=== PATIENT | female | born 1995 | race Caucasian/White ===

== ENCOUNTER → 2019-08-10 | Outpatient (REF) | payer OTHER ==
[2019-08-10 18:21] LABS: HEMATOCRIT 41.8 % (36.0-47.0); HEMOGLOBIN 13.9 g/dl (12.0-15.5); MEAN CORPUSCULAR HEMOGLOBIN 29.1 pg (27.0-33.0); MEAN CORPUSCULAR HGB CONC 33.3 g/dl (32.0-36.5); MEAN CORPUSCULAR VOLUME 87.4 fl (80.0-96.0); PLATELET COUNT, AUTOMATED 285 10^3/uL (150-450); RED BLOOD COUNT 4.78 10^6/uL (4.00-5.40); WHITE BLOOD COUNT 9.5 10^3/uL (4.0-10.0)
[2019-08-10 19:02] LABS: HCG, SERUM QUANTITATIVE 58061 MIU/ML
[2019-08-11 09:42] LABS: RUBELLA IgG QUALITATIVE EQUIVOCAL (IMMUNE)
[2019-08-11 10:10] LABS: HEPATITIS C VIRUS ABY INDEX < 0.0 INDEX (<0.8)
[2019-08-11 10:11] LABS: HIV 1&2 SCREEN CENTAUR NEGATIVE (NEGATIVE)
== END ==
LOC: M LAB REF 16:39
PROVIDERS: ATTEND Obstetrics & Gynecology
DX: O36.80X0 Pregnancy with inconclusive fetal viability, not applicable or unspecified (principal)

== ENCOUNTER → 2019-08-15 | Outpatient (CLI) | payer OTHER ==
--- NOTE | 2019-08-15 14:30 | REP ---
Clinical: Dating and viability. Technique: Transabdominal obstetrical ultrasound with color Doppler evaluation. Findings: Ultrasound examination demonstrates a single live intrauterine . Biometrical measurements correspond to 14 weeks 0 days gestational age with estimated date of delivery 02/13/2020. heart rate equals 152 beats per minute. Placenta identified anteriorly and grade 1 without evidence for placenta previa or abruption. Cervix appears closed and measures 3.3 cm length. Amniotic fluid volume is subjectively normal. Impression: A single live early intrauterine at 14 weeks 0 days gestational age. Electronically Signed by Wilian Acosta MD 08/15/2019 02:22 P
== END ==
LOC: M RAD 13:41
PROVIDERS: ATTEND Obstetrics & Gynecology
DX: O36.80X0 Pregnancy with inconclusive fetal viability, not applicable or unspecified (principal)

== ENCOUNTER → 2019-10-03 | Outpatient (CLI) | payer OTHER, MEDICAID ==
--- NOTE | 2019-10-03 17:54 | REP ---
HISTORY: anatomy. COMPARISON: None. Multiple ultrasonographic images of the gravid uterus show a single living intrauterine gestation in the cephalic presentation. Doppler interrogation of the heart shows a heart rate of 144 beats per minute. The placenta is anterior and not low lying. The subjective amniotic fluid volume is within normal limits. The cervix measures 3.5 cm in length and is closed. Evaluation of the maternal adnexal spaces showed no abnormalities. BPD 4.7 cm = 20 weeks 2 days HC 17.7 cm = 20 weeks 1 day AC 13.6 cm = 19 weeks 1 day FL 3.2 cm = 20 weeks 0 days The estimated weight is 301 grams, which is at the 20th percentile for a 20 week 3 day gestational age. The structures visualized as unremarkable are as follows: Thalami, cavum septum pellucidum, cerebellum, cisterna magna, upper lip, right and left ventricular outflow tracts, stomach, three vessel umbilical cord, cord insertion, spine, kidneys, urinary bladder, upper and lower extremities. Four chamber heart was not adequately visualized. IMPRESSION: Single living intrauterine gestation as described above with an estimated gestational age of 19 weeks 6 days via composite criteria and an estimated date of delivery of 02/21/2020 by today's exam. No anomalies were detected, however, I recommend a followup examination to better visualize the four chamber heart. Electronically Signed by Rafat Kraus DO 10/03/2019 07:30 P
== END ==
LOC: M RAD 15:21
PROVIDERS: ATTEND Obstetrics & Gynecology
DX: Z34.02 Encounter for supervision of normal first pregnancy, second trimester (principal); Z3A.19 19 weeks gestation of pregnancy

== ENCOUNTER → 2019-10-26 | Outpatient (CLI) | payer OTHER, MEDICAID ==
--- NOTE | 2019-10-27 01:14 | REP ---
Clinical: Anatomical evaluation. Comparison: 10/03/2019 . Findings: Examination demonstrates a single live intrauterine in cephalic presentation. motion is identified by technologist. Placenta is noted anterior and grade I without evidence for placenta previa or abruption. Amniotic fluid volume is normal. Cervix measures 4.0 cm in length and appears closed. No evidence for nuchal cord. Gestational age by LMP 23 weeks 5 days with 02/17/2020 . Gestational age by current measurements 23 weeks 2 days with 02/20/2020 . FHR equals 147 beats per minute. Estimated weight 565 grams ( 28th percentile). Anatomical assessment demonstrates normal structures including cranium, choroid plexus, cavum, cerebellum/posterior fossa, facial features, lungs, four-chamber heart, diaphragm, stomach, cord insertion/three-vessel cord, kidneys/bladder, spine, and extremities. Impression: Single live intrauterine in cephalic presentation demonstrating appropriate interval growth. In conjunction with prior examination anatomical assessment is complete and normal. No gross abnormalities are identified. Electronically Signed by Wilian Acosta MD 10/27/2019 01:06 A
== END ==
LOC: M RAD 15:56
PROVIDERS: ATTEND Obstetrics & Gynecology
DX: Z34.02 Encounter for supervision of normal first pregnancy, second trimester (principal); Z36.2 Encounter for other antenatal screening follow-up; Z3A.23 23 weeks gestation of pregnancy

== ENCOUNTER → 2019-11-23 | Outpatient (CLI) | payer OTHER, MEDICAID ==
[2019-11-23 15:55] LABS: HEMATOCRIT 34.3 % (36.0-47.0); HEMOGLOBIN 11.1 g/dl (12.0-15.5); MEAN CORPUSCULAR HEMOGLOBIN 29.1 pg (27.0-33.0); MEAN CORPUSCULAR HGB CONC 32.4 g/dl (32.0-36.5); PLATELET COUNT, AUTOMATED 281 10^3/uL (150-450); RED BLOOD COUNT 3.81 10^6/uL (4.00-5.40); WHITE BLOOD COUNT 10.5 10^3/uL (4.0-10.0)
== END ==
LOC: M LAB 14:21
PROVIDERS: ATTEND Obstetrics & Gynecology
DX: Z36.89 Encounter for other specified antenatal screening (principal)

== ENCOUNTER 2020-02-21 12:25 | Inpatient (IN) | payer OTHER, MEDICAID ==
[2020-02-21] VITALS (37 sets, daily range): BP systolic 97–158; BP diastolic 50–89
[~2020-02-21] VITALS: Ht 162.6 cm; Wt 96.3 kg
[2020-02-21] MEDS ORDERED: MAPA500T2 PO (12:50)
[2020-02-21] MEDS ORDERED: LR 1,000 ML IV SCH (13:03)
[2020-02-21] MEDS ORDERED: LACTATED RINGER'S 1000 ML IV STA (13:03)
[2020-02-21] MEDS ORDERED: FENTANYL 2MCG/ML ROPIVACAINE 0.2% IN 0.9% NACL 100ML IVBAG As Ordered ONE (14:10)
[2020-02-21 14:12] LABS: BASO % 0.2 % (0.0-1.0); EOS % 0.1 % (0.0-3.0); HEMATOCRIT 36.7 % (36.0-47.0); HEMOGLOBIN 11.7 g/dl (12.0-15.5); LYMPH # 1.4 10^3/uL (1.5-5.0); LYMPH % 12.6 % (24.0-44.0); MEAN CORPUSCULAR HEMOGLOBIN 26.1 pg (27.0-33.0); MEAN CORPUSCULAR HGB CONC 31.9 g/dl (32.0-36.5); MEAN CORPUSCULAR VOLUME 81.9 fl (80.0-96.0); MONO # 0.6 10^3/uL (0.0-0.8); MONO % 5.3 % (0.0-5.0); NEUTROPHILS # 8.9 10^3/uL (1.5-8.5); NEUTROPHILS % 81.3 % (36.0-66.0); PLATELET COUNT, AUTOMATED 288 10^3/uL (150-450); RED BLOOD COUNT 4.48 10^6/uL (4.00-5.40); WHITE BLOOD COUNT 10.9 10^3/uL (4.0-10.0)
[2020-02-21] MEDS ORDERED: OXYTOCIN DRIP 30 UNITS in IV 1 EA IV SCH ×2 (14:45→19:34)
[2020-02-21] MEDS ORDERED: ONDANSETRON 4MG/2ML VIAL IV PRN (15:30)
[2020-02-21] MEDS ORDERED: EPIDURAL COMMENT XX SCH (15:30)
[2020-02-21] MEDS ORDERED: REFRIGERATOR IV KEYS XX PRN (15:30)
[2020-02-21] MEDS ORDERED: EPIDURAL/PCA KEYS XX PRN (15:30)
[2020-02-21] MEDS ORDERED: LACTATED RINGER'S 1000 ML IV PRN (15:30)
[2020-02-21] MEDS ORDERED: ePHEDrine SULFATE 25 MG/5 ML(5MG/ML) SYRINGE IV PRN (15:30)
[2020-02-21] MEDS ORDERED: NALOXONE INJ 0.4MG/1ML VIAL (J2310 PER 1MG) IV PRN (15:30)
[2020-02-21] MEDS ORDERED: FENTANYL/ROPIVACAINE/NACL BAG 100 ML EPIDURAL SCH (15:30)
[2020-02-21] MEDS ORDERED: diphenhydrAMINE 50MG/ML VIAL (J1200) IV PRN (15:30)
[2020-02-21 19:30] LABS: CORD GAS ABE A -6.8; CORD GAS HCO3 A 20.5 MEQ/L; CORD GAS O2 SAT A 35.5 %; CORD GAS PCO2 A 47.4 mmHg; CORD GAS PH A 7.253 UNITS; CORD GAS PO2 A 18.3 mmHg; CORD GAS SBC A 17.6 MEQ/L; CORD GAS TCO2 A 21.9 MEQ/L
[2020-02-21 19:31] LABS: CORD GAS HCO3 V 18.3 MEQ/L; CORD GAS O2 SAT V 75.4 %; CORD GAS PCO2 V 36.3 mmHg; CORD GAS PH V 7.32 UNITS; CORD GAS PO2 V 34.2 mmHg; CORD GAS SBC V 18.4 MEQ/L; CORD GAS TCO2 V 19.4 MEQ/L
[2020-02-21] MEDS ORDERED: MEASLES,MUMPS,RUBELLA VACCINE INJ (MMR-II) (90707) SC SCH (19:45)
[2020-02-21] MEDS ORDERED: METHYLERGONOVINE MALEATE 0.2 MG TAB PO PRN (19:45)
[2020-02-21] MEDS ORDERED: DIBUCAINE 1% OINTMENT 30GM TOP PRN (19:45)
[2020-02-21] MEDS ORDERED: RHOGAM 300 MCG (1500 IU) INJ (J2790) IM SCH (19:45)
[2020-02-21] MEDS ORDERED: ANUSOL HC CREAM 30GM TOP PRN (19:45)
[2020-02-21] MEDS ORDERED: ACETAMINOPHEN 500 MG TAB PO PRN (19:45)
[2020-02-21] MEDS ORDERED: ACETAMINOPHEN TAB 650MG DOSE (2X325MG) PO PRN (19:45)
[2020-02-21] MEDS ORDERED: IBUPROFEN 800 MG TAB PO PRN (19:45)
[2020-02-21] MEDS ORDERED: MOM 30ML SUSPENSION UDC PO PRN (19:45)
[2020-02-21] MEDS ORDERED: IBUPROFEN 600MG TAB PO PRN (19:45)
[2020-02-21] MEDS: DOCUSATE SODIUM 100 MG CAP PO SCH (21:00)
[2020-02-22 06:00] VITALS: BP 127/70
[2020-02-22] MEDS: DOCUSATE SODIUM 100 MG CAP PO SCH ×2 (09:10→21:00)
[2020-02-22] MEDS: PRENATAL VITAMINS CHEWABLE TABLET PO SCH (09:10)
[2020-02-22] MEDS ORDERED: SLF 3 ML SYR IV PRN (09:15)
[2020-02-22] MEDS: SLF 3 ML SYR IV SCH ×2 (14:30→22:00)
[2020-02-22 17:35] VITALS: BP 142/68
[2020-02-23 06:00] VITALS: BP 126/67
[2020-02-23] MEDS: SLF 3 ML SYR IV SCH (07:12)
[2020-02-23] MEDS: DOCUSATE SODIUM 100 MG CAP PO SCH (07:59)
[2020-02-23] MEDS: PRENATAL VITAMINS CHEWABLE TABLET PO SCH (07:59)
--- NOTE | 2020-02-26 08:14 | HPE ---
DATE OF ADMISSION: 02/21/2020 Monika is a 24-year-old female, 1, para 0 with an estimated date of confinement (EDC) of 02/18/2020, estimated gestational age (EGA) 40-4/7 weeks gestation, who is being admitted after presenting with complaint of contractions every 3-4 minutes with spontaneous rupture of membranes. She was examined earlier and found to be in labor. At this point, a decision was made for admission. Her record reviewed. She initiated care at around 14 weeks. Her course was essentially unremarkable, LABORATORY: Blood type is 0 positive, rubella equivocal, hepatitis negative, HIV negative, GC/chlamydia negative. One-hour sugar testing was within normal limits. Her GBS is negative. PAST MEDICAL HISTORY: Significant for chicken pox. PAST SURGICAL HISTORY: Denies. SOCIAL HISTORY: She denies any alcohol, drug, or cigarette smoking. REVIEW OF SYSTEMS: Unremarkable. FAMILY HISTORY: Significant for hypertension, heart disease, kidney disease, and glaucoma. MEDICATIONS: vitamin. ALLERGIES: No known drug allergies. PHYSICAL EXAMINATION: Obese female in no acute distress. Abdomen soft, nontender, nondistended. Extremities: No clubbing, cyanosis or edema. Vaginal exam: 5 cm dilated, 90% effaced. Fetus in -2 station in a vertex position. Tracing reviewed. Category 1 tracing. Contractions every 3-4 minutes. ASSESSMENT: 1. Intrauterine at 40-4/7 weeks gestation in active labor with spontaneous rupture of membranes. 2. GBS negative. PLAN: Admit to labor and delivery. Routine labs sent. Pain management discussed. Patient up for an epidural. Will continue to monitor. Anticipate delivery. [facility]
--- NOTE | 2020-04-04 15:49 | DN ---
DATE OF DELIVERY: 02/21/2020 Monika is a 24-year-old female, 1, para 0 who was admitted at 40-4/7 weeks gestation with spontaneous rupture of membranes, in labor. She progressed to fully dilated after Pitocin augmentation and epidural. She then pushed and delivered a live female infant in left occiput anterior position. scores 8 and 9. weight 6 pounds 11 ounces. Placenta delivered spontaneous intact. Three-vessel cord. Perineum, vagina, cervix inspected. Left lateral vaginal wall as well as perineal laceration noted. This was repair using 2-0 chromic. Estimated blood loss 300 mL. Both mother and baby in stable condition. [facility]
== END 2020-02-23 11:22 | disposition home or self-care (01) | DRG 560 ==
LOC: M LDI 12:25 → M OBS 20:50
PROVIDERS: ADMIT Obstetrics & Gynecology; ATTEND Obstetrics & Gynecology
PROC: 10E0XZZ Delivery of Products of Conception, External Approach (ICD-10-PCS; principal; 2020-02-21)
PROC: 0HQ9XZZ Repair Perineum Skin, External Approach (ICD-10-PCS; 2020-02-21)
DX: O48.0 Post-term pregnancy (principal); Z37.0 Single live birth; Z3A.40 40 weeks gestation of pregnancy; O70.0 First degree perineal laceration during delivery

== ENCOUNTER → 2020-12-26 | Outpatient (REF) | payer BC, MEDICAID ==
[~2020-12-26] MED LIST: MAPA500T2 PO
[2020-12-26 17:55] LABS: HEMATOCRIT 36.2 % (36.0-47.0); HEMOGLOBIN 11.7 g/dl (12.0-15.5); MEAN CORPUSCULAR HEMOGLOBIN 27.5 pg (27.0-33.0); MEAN CORPUSCULAR HGB CONC 32.3 g/dl (32.0-36.5); PLATELET COUNT, AUTOMATED 283 10^3/uL (150-450); RED BLOOD COUNT 4.26 10^6/uL (4.00-5.40); WHITE BLOOD COUNT 9.7 10^3/uL (4.0-10.0)
[2020-12-26 19:08] LABS: HCG, SERUM QUANTITATIVE 18112 MIU/ML; HEPATITIS B SURFACE ANTIGEN NEGATIVE (NEGATIVE); HIV 1&2 SCREEN CENTAUR NEGATIVE (NEGATIVE)
== END ==
LOC: M LAB REF 17:01
PROVIDERS: ATTEND Obstetrics & Gynecology
DX: O36.80X0 Pregnancy with inconclusive fetal viability, not applicable or unspecified (principal)

== ENCOUNTER → 2021-01-07 | Outpatient (CLI) | payer BC, MEDICAID ==
--- NOTE | 2021-01-07 22:52 | REP ---
INDICATION: PREG DATING W/ ANATOMY LATE TO CARE COMPARISON: None. TECHNIQUE: Transabdominal obstetrical ultrasound with color Doppler evaluation. FINDINGS: Examination demonstrates a single live intrauterine in transverse presentation. motion is identified by technologist. Placenta is noted anterior/left lateral grade 0 and grade without evidence for placenta previa or abruption. Amniotic fluid volume is normal. Cervix measures 3.6 cm in length and appears closed.. Selected gestational age: 25 weeks 1 day with 04/21/2021. Gestational age by current measurements 25 weeks 2 days with 04/20/2021. FHR equals 155 beats per minute. RUBY: 11.7 cm Estimated weight 754 grams (34thpercentile). Anatomical assessment demonstrates normal structures including facial features, lungs, four-chamber heart/ventricular outflow tracts, diaphragm, stomach, cord insertion/three-vessel cord, kidneys/bladder, spine, and extremities. Intracranial structures are grossly normal. IMPRESSION: Single live intrauterine in transverse lie. Anatomical assessment is within normal limits. <Electronically signed by Wilian Acosta > 01/07/21 [id number]
== END ==
LOC: M RAD 17:20
PROVIDERS: ATTEND Advanced Practice Midwife
DX: Z36.9 Encounter for antenatal screening, unspecified (principal); Z3A.25 25 weeks gestation of pregnancy

== ENCOUNTER → 2021-01-23 | Outpatient (REF) | payer BC, MEDICAID | LOC: M LAB REF 17:20 | PROVIDERS: ATTEND Obstetrics & Gynecology | DX: Z34.01 Encounter for supervision of normal first pregnancy, first trimester (principal); Z3A.00 Weeks of gestation of pregnancy not specified ==

== ENCOUNTER → 2021-01-27 | Outpatient (CLI) | payer BC, MEDICAID ==
[2021-01-27 14:52] LABS: HEMATOCRIT 36.6 % (36.0-47.0); HEMOGLOBIN 11.7 g/dl (12.0-15.5); MEAN CORPUSCULAR HEMOGLOBIN 28.1 pg (27.0-33.0); MEAN CORPUSCULAR VOLUME 87.8 fl (80.0-96.0); PLATELET COUNT, AUTOMATED 278 10^3/uL (150-450); RED BLOOD COUNT 4.17 10^6/uL (4.00-5.40); WHITE BLOOD COUNT 8.5 10^3/uL (4.0-10.0)
== END ==
LOC: M LAB 12:58
PROVIDERS: ATTEND Obstetrics & Gynecology
DX: Z34.02 Encounter for supervision of normal first pregnancy, second trimester (principal); Z3A.00 Weeks of gestation of pregnancy not specified

== ENCOUNTER → 2021-03-25 | Outpatient (REF) | payer BC, MEDICAID | LOC: M LAB REF 11:38 | PROVIDERS: ATTEND Obstetrics & Gynecology | DX: Z36.85 Encounter for antenatal screening for Streptococcus B (principal) ==

== ENCOUNTER → 2022-06-30 | Outpatient (REF) | payer BC, MEDICAID ==
[2022-06-30 17:00] LABS: HEMATOCRIT 41.1 % (36.0-47.0); HEMOGLOBIN 13.5 g/dl (12.0-15.5); MEAN CORPUSCULAR HGB CONC 32.8 g/dl (32.0-36.5); MEAN CORPUSCULAR VOLUME 85.3 fl (80.0-96.0); PLATELET COUNT, AUTOMATED 287 10^3/uL (150-450); RED BLOOD COUNT 4.82 10^6/uL (4.00-5.40); WHITE BLOOD COUNT 8.1 10^3/uL (4.0-10.0)
[2022-06-30 17:48] LABS: HEPATITIS B SURFACE ANTIGEN NEGATIVE (NEGATIVE)
[2022-06-30 18:01] LABS: HIV 1&2 SCREEN CENTAUR NEGATIVE (NEGATIVE)
[2022-06-30 18:08] LABS: HEPATITIS C VIRUS ABY INDEX 0.1 INDEX (<0.8)
[2022-06-30 18:17] LABS: HCG, SERUM QUANTITATIVE 90974.8 MIU/ML (<4.2)
== END ==
LOC: M LAB REF 16:27
PROVIDERS: ATTEND Obstetrics & Gynecology
DX: O36.80X0 Pregnancy with inconclusive fetal viability, not applicable or unspecified (principal); Z32.01 Encounter for pregnancy test, result positive

== ENCOUNTER → 2022-07-08 | Outpatient (CLI) | payer BC, MEDICAID | LOC: M RAD 15:04 | PROVIDERS: ATTEND Obstetrics & Gynecology | DX: Z32.01 Encounter for pregnancy test, result positive (principal); Z3A.13 13 weeks gestation of pregnancy ==

== ENCOUNTER → 2022-08-24 | Outpatient (CLI) | payer BC, MEDICAID | LOC: M RAD 15:27 | PROVIDERS: ATTEND Obstetrics & Gynecology | DX: Z34.82 Encounter for supervision of other normal pregnancy, second trimester (principal) ==

== ENCOUNTER → 2022-09-23 | Outpatient (CLI) | payer BC, MEDICAID | LOC: M RAD 16:00 | PROVIDERS: ATTEND Obstetrics & Gynecology | DX: Z34.82 Encounter for supervision of other normal pregnancy, second trimester (principal); Z3A.24 24 weeks gestation of pregnancy ==